=== PATIENT | female | born 1960 | race African-American/Black ===

== ENCOUNTER 2017-10-06 09:55 | Outpatient (CLI) | payer OTHER | END 2017-10-06 09:56 | disposition home or self-care (01) | LOC: BICMAMMO 09:55 | PROVIDERS: ATTEND Family Medicine | DX: Z12.31 Encounter for screening mammogram for malignant neoplasm of breast (principal); Z80.3 Family history of malignant neoplasm of breast | CPT/HCPCS: 77067 ==

== ENCOUNTER 2018-04-14 20:56 | Emergency (ER) | payer OTHER ==
[2018-04-14] MEDS ORDERED: Ketorolac Tromethamine 30 MG/ML VIAL ONE (21:34)
--- NOTE | 2018-04-14 22:24 | RAD ---
THREE VIEWS LEFT FOOT: 04/14/18 HISTORY: Pain. COMPARISON: None. FINDINGS: Lisfranc alignment is maintained. Joint spaces are preserved. No fracture. No cortical irregularity o r periosteal reaction. IMPRESSION: No fracture. POS: [id number]
== END 2018-04-14 22:37 | disposition home or self-care (01) ==
LOC: ERS 20:56
DX: R58 Hemorrhage, not elsewhere classified (principal); E11.9 Type 2 diabetes mellitus without complications; Z79.4 Long term (current) use of insulin
CPT/HCPCS: 96372; J1885

== ENCOUNTER 2018-10-23 14:55 | Emergency (ER) | payer MEDICAID, OTHER | END 2018-10-23 16:20 | disposition home or self-care (01) | LOC: ERS 14:55 | DX: S16.1XXA Strain of muscle, fascia and tendon at neck level, initial encounter (principal); S39.012A Strain of muscle, fascia and tendon of lower back, initial encounter; Z79.4 Long term (current) use of insulin; Z79.899 Other long term (current) drug therapy; V89.2XXA Person injured in unspecified motor-vehicle accident, traffic, initial encounter; Y92.481 Parking lot as the place of occurrence of the external cause | CPT/HCPCS: 99283 ==

== ENCOUNTER 2020-09-11 13:16 | Outpatient (CLI) | payer MEDICARE, OTHER | END 2020-09-11 13:17 | disposition home or self-care (01) | LOC: ULT 13:16 | PROVIDERS: ATTEND Student in an Organized Health Care Education/Training Program | DX: R01.1 Cardiac murmur, unspecified (principal) | CPT/HCPCS: 93306 ==